=== PATIENT | female | born 1990 | race Caucasian/White ===

== ENCOUNTER 2020-04-09 03:29 | Emergency (ER) | payer OTHER ==
[2020-04-09 03:56] VITALS: BMI 30.2
--- NOTE | 2020-04-09 03:56 | PDOC ---
ED Treatment Course - LABORATORY CBC & Chemistry Diagram: 04/09/20 04:16 04/09/20 04:16 Medical Decision Making - Medical Decision Making 04/09/20 03:56 Patient seen by the advanced practice provider under my supervision. Ancillary testing reviewed as necessary. I agree with plan as outlined by the advanced practice provider. Discharge - Discharge Information Problems reviewed: Yes Clinical Impression/Diagnosis: Left facial swelling, Cellulitis and abscess of face Condition: Fair Disposition: HOME - Follow up/Referral - Patient Discharge Instructions Patient Printed Discharge Instructions: Tooth Abscess Additional Instructions: Please Follow-up with oral maxillofacial surgery immediately for cellulitis and abscess as discussed before. - Post Discharge Activity
[2020-04-09] MEDS ORDERED: ACETAMINOPHEN 1000 MG/100 ML VIAL (NON FORMULARY) IVPB ONE (03:59)
[2020-04-09] MEDS ORDERED: DEXAMETHASONE SOD PHOSPHATE 10 MG/1 ML VIAL IM ONE (03:59)
[2020-04-09] MEDS ORDERED: DEXAMETHASONE SOD PHOSPHATE 10 MG/1 ML VIAL ONE (04:30)
[2020-04-09] MEDS ORDERED: ACETAMINOPHEN INJECTION 100 ML IVPB ONE (04:31)
[2020-04-09 04:33] LABS: BASO % 0.5 % (0-2.0); EOS % 2.8 % (0-4.5); HEMATOCRIT 37.2 % (32.4-45.2); HEMOGLOBIN 12.7 GM/dL (10.7-15.3); LYMPH % 21.8 % (8-40); MCH 31.1 pg (25.7-33.7); MCHC 34.1 g/dl (32.0-36.0); MEAN CELL VOLUME 91.2 fl (80-96); MEAN PLT VOLUME 9.8 fl (7.5-11.1); MONO % 9.3 % (3.8-10.2); NEUT % 65.6 % (42.8-82.8); PLATELET COUNT 184 K/MM3 (134-434); RBC 4.08 M/mm3 (3.60-5.2); RDW 13.9 % (11.6-15.6); WHITE BLOOD COUNT 5.7 K/mm3 (4.0-10.0)
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
[2020-04-09 04:55] LABS: ALBUMIN 3.8 g/dl (3.4-5.0); BILIRUBIN,TOTAL 0.5 mg/dL (0.2-1); BLOOD UREA NITROGEN 14.5 mg/dL (7-18); CALCIUM 8.5 mg/dL (8.5-10.1); CREATININE 0.8 mg/dL (0.55-1.3); POTASSIUM 3.8 mmol/L (3.5-5.1); TOT PROT 6.6 g/dl (6.4-8.2)
[2020-04-09] MEDS ORDERED: CLINDAMYCIN IVPB 300 MG in DEXTROSE 5%-WATER - 48 ML IVPB ONE (05:02)
[2020-04-09] MEDS ORDERED: CLINDAMYCIN PHOSPHATE 600 MG/4 ML VIAL ONE (05:41)
[2020-04-09] MEDS ORDERED: KETOROLAC TROMETHAMINE 30 MG/1 ML VIAL IVPUSH ONE (06:56)
[2020-04-09 06:59] VITALS: BP 121/68; PULSE 65; TEMP 98.2
[2020-04-09] MEDS ORDERED: KETOROLAC TROMETHAMINE 30 MG/1 ML VIAL ONE (07:02)
== END 2020-04-09 07:10 | disposition home or self-care (01) ==
LOC: JER 03:29
PROC: 3E033NZ Introduction of Analgesics, Hypnotics, Sedatives into Peripheral Vein, Percutaneous Approach (ICD-10-PCS; principal; 2020-04-09)
PROC: 3E0234Z Introduction of Serum, Toxoid and Vaccine into Muscle, Percutaneous Approach (ICD-10-PCS; 2020-04-09)
PROC: 3E0333Z Introduction of Anti-inflammatory into Peripheral Vein, Percutaneous Approach (ICD-10-PCS; 2020-04-09)
DX: L03.211 Cellulitis of face (principal); L02.01 Cutaneous abscess of face
CPT/HCPCS: 36415; 70486-TC; 70491-TC; 80053; 84703; 85025; 99285-25; J0131; J1100

== ENCOUNTER 2022-01-04 15:13 | Emergency (ER) | payer OTHER ==
[2022-01-04 15:56] VITALS: BP 134/83; PULSE 72; TEMP 98.1; BMI 32.9
[2022-01-04] MEDS ORDERED: diazePAM 5 MG TABLET PO ONE (16:02)
[2022-01-04] MEDS ORDERED: KETOROLAC TROMETHAMINE 30 MG/1 ML VIAL IM ONE (16:02)
[2022-01-04] MEDS ORDERED: LIDOCAINE 5% TOPICAL PATCH TP ONE (16:02)
[2022-01-04] MEDS ORDERED: KETOROLAC TROMETHAMINE 30 MG/1 ML VIAL ONE (16:04)
[2022-01-04] MEDS ORDERED: diazePAM 5 MG TABLET ONE (16:04)
[2022-01-04] MEDS ORDERED: LIDOCAINE 5% TOPICAL PATCH ONE (16:04)
[2022-01-04] MEDS ORDERED: PHENAZOPYRIDINE HCL 100 MG TABLET (FP) PO ONE (16:35)
[2022-01-04] MEDS ORDERED: SODIUM CHLORIDE 0.9% 500 ML INFUS.BAG IV ONE (16:35)
[2022-01-04] MEDS ORDERED: PHENAZOPYRIDINE HCL 100 MG TABLET (FP) ONE (16:50)
[2022-01-04 17:26] LABS: BASO % 0.3 % (0-2.0); EOS % 2.2 % (0-4.5); HEMATOCRIT 37.4 % (32.4-45.2); HEMOGLOBIN 12.7 GM/dL (10.7-15.3); MCH 30.1 pg (25.7-33.7); MEAN CELL VOLUME 88.7 fl (80-96); MEAN PLT VOLUME 8.7 fl (7.5-11.1); NEUT % 67.5 % (42.8-82.8); PLATELET COUNT 233 10^3/uL (134-434); RBC 4.22 M/mm3 (3.60-5.2); RDW 12.8 % (11.6-15.6); WHITE BLOOD COUNT 4.8 K/mm3 (4.0-10.0)
[2022-01-04 17:37] LABS: EPI CELLS 1 /uL (0-25.1); HYALINE CASTS 0 /uL (0-3.1); PH,URINE 6.5 (5.0-8.0); URINE APPEARANCE CLEAR; URINE BACTERIA 752 /uL (0-1359); URINE BILIRUBIN NEGATIVE (NEGATIVE); URINE COLOR YELLOW; URINE GLUCOSE (UA) NEGATIVE (NEGATIVE); URINE KETONE NEGATIVE (NEGATIVE); URINE LEUK ESTERASE 2+ (NEGATIVE); URINE NITRITE NEGATIVE (NEGATIVE); URINE PROTEIN NEGATIVE (NEGATIVE); URINE RBC 42 /uL (0-23.9); URINE UROBILINOGEN 0.2 mg/dL (0.2-1.0); URINE WBC 240 /uL (0-25.8)
[2022-01-04 17:45] LABS: CALCIUM 8.7 mg/dL (8.5-10.1)
[2022-01-04 17:46] LABS: ALBUMIN 3.6 g/dl (3.4-5.0); BLOOD UREA NITROGEN 15.1 mg/dL (7-18)
[2022-01-04 17:49] LABS: CREATININE 0.7 mg/dL (0.55-1.3)
[2022-01-04 17:51] LABS: BILIRUBIN,TOTAL 0.6 mg/dL (0.2-1); TOT PROT 6.6 g/dl (6.4-8.2)
[2022-01-04] MEDS ORDERED: LIDOCAINE PATCH REMOVAL MC SCH (22:00)
== END 2022-01-04 19:00 | disposition left against medical advice (07) ==
LOC: JER 15:13 → JERFT 15:13
PROC: 3E0333Z Introduction of Anti-inflammatory into Peripheral Vein, Percutaneous Approach (ICD-10-PCS; principal; 2022-01-04)
DX: N10 Acute pyelonephritis (principal)
CPT/HCPCS: 36415; 74176-TC; 80053; 81003; 84703; 85025; 87086; 87186; 99285-25

== ENCOUNTER 2022-02-08 08:29 | Emergency (ER) | payer OTHER ==
[2022-02-08 08:42] VITALS: BP 139/67; PULSE 72; TEMP 97.9; BMI 29.9
== END 2022-02-08 12:38 | disposition home or self-care (01) ==
LOC: JER 08:29 → JERFT 08:29
DX: M25.561 Pain in right knee (principal)
CPT/HCPCS: 73560-TC-RT-FY; 93971-TC; 99284-25

== ENCOUNTER 2022-06-06 14:58 | Emergency (ER) | payer OTHER ==
[2022-06-06 15:04] VITALS: BP 130/82; PULSE 86; RESP 18; TEMP 97.8; BMI 30.9
[2022-06-06] MEDS ORDERED: KETOROLAC TROMETHAMINE 30 MG/1 ML VIAL IM ONE (16:40)
[2022-06-06] MEDS ORDERED: KETOROLAC TROMETHAMINE 30 MG/1 ML VIAL ONE (16:41)
== END 2022-06-06 16:51 | disposition home or self-care (01) ==
LOC: JERFT 14:58
PROC: 3E023GC Introduction of Other Therapeutic Substance into Muscle, Percutaneous Approach (ICD-10-PCS; principal; 2022-06-06)
DX: S49.92XA Unspecified injury of left shoulder and upper arm, initial encounter (principal); W22.8XXA Striking against or struck by other objects, initial encounter
CPT/HCPCS: 73070-TC-LT-FY; 73090-TC-LT-FY; 73110-TC-LT-FY; 73130-TC-LT-FY; 99284-25

== ENCOUNTER 2022-11-18 22:26 | Emergency (ER) | payer OTHER ==
[2022-11-18 23:01] VITALS: BP 131/82; PULSE 70; RESP 18; TEMP 98.2; BMI 32.5
[2022-11-19] MEDS ORDERED: KETOROLAC TROMETHAMINE 30 MG/1 ML VIAL IM ONE (00:13)
[2022-11-19] MEDS ORDERED: METHOCARBAMOL 500 MG TABLET PO ONE (00:14)
[2022-11-19] MEDS ORDERED: LIDOCAINE 5% TOPICAL PATCH TP ONE (00:14)
[2022-11-19] MEDS ORDERED: LIDOCAINE 5% TOPICAL PATCH ONE (00:54)
[2022-11-19] MEDS ORDERED: KETOROLAC TROMETHAMINE 30 MG/1 ML VIAL ONE (00:54)
[2022-11-19] MEDS ORDERED: METHOCARBAMOL 500 MG TABLET ONE (00:54)
[2022-11-19] MEDS ORDERED: LIDOCAINE PATCH REMOVAL MC SCH (22:00)
== END 2022-11-19 03:25 | disposition home or self-care (01) ==
LOC: JER 22:26
PROC: 3E0233Z Introduction of Anti-inflammatory into Muscle, Percutaneous Approach (ICD-10-PCS; principal; 2022-11-19)
DX: M25.561 Pain in right knee (principal); M54.50 Low back pain, unspecified; V49.50XA Passenger injured in collision with unspecified motor vehicles in traffic accident, initial encounter
CPT/HCPCS: 72100-TC-FY; 73562-TC-RT-FY; 99284-25